=== PATIENT | male | born 1990 | race Caucasian/White ===

== ENCOUNTER 2021-10-27 17:39 | Emergency (ER) | payer OTHER ==
[2021-10-27 17:43] VITALS: PULSE 80; RESP 20; TEMP 98.7
[2021-10-27] MEDS ORDERED: FLUORESCEIN STRIPS 1 MG STRIP LEFT EYE ONE (19:00)
[2021-10-27] MEDS ORDERED: PROPARACAINE 0.5% OPHTH DROPS 15 ML BTL LEFT EYE STA (19:00)
[2021-10-27] MEDS ORDERED: DIPH,PERTUS(ACELL)TETVAC-LF 0.5 ML VIAL IM ONE (20:33)
[2021-10-27] MEDS ORDERED: TOBRAMYCIN 0.3% OPHTH OINT 3.5 GM TUBE LEFT EYE STA (20:33)
--- NOTE | 2021-10-27 20:35 | ED ---
General Adult HPI - General Chief complaint: Eye Problems Stated complaint: foreign body lt eye Time Seen by Provider: 10/27/21 18:59 Source: patient Mode of arrival: ambulatory Limitations: no limitations - History of Present Illness Initial comments: 31-year-old male patient presents to the emergency department today for evaluation of foreign body to the left eye. Patient states that he was at work when he fell something in his eye. States that he started to have more discomfort after he got home from work. Denies any drainage from the eye. Den ies any blurred or double vision. States he is able to see a speck near his cornea. He is unsure when his last tetanus was given. 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 Denies use of contact lenses. - Related Data Home Medications Medication Instructions Recorded Confirmed No Known Home Medications 10/27/21 10/27/21 Allergies Allergy/AdvReac Type Severity Reaction Status Date / Time No Known Allergies Allergy Verified 10/27/21 19:39 Review of Systems ROS Statement: Those systems with pertinent positive or pertinent negative responses have been documented in the HPI. ROS Other: All systems not noted in ROS Statement are negative. Past Medical History Past Medical History: Asthma History of Any Multi-Drug Resistant Organisms: None Reported Past Surgical History: No Surgical Hx Reported Past Psychological History: No Psychological Hx Reported Smoking Status: Never smoker Past Alcohol Use History: Occasional Past Drug Use History: Marijuana General Exam Limitations: no limitations General appearance: alert, in no apparent distress, other (This is a well- developed, well-nourished adult male in no acute distress.) Eye exam: Present: PERRL, EOMI, other (Fluorescein stain with Wood's lamp examination performed did reveal evidence for foreign body over the left cornea at 9:00. Negative Jessika sign.). Absent: normal appearance, scleral icterus, conjunctival injection, periorbital swelling Respiratory exam: Present: normal lung sounds bilaterally. Absent: respiratory distress, wheezes, rales, rhonchi, stridor Cardiovascular Exam: Present: regular rate, normal rhythm, normal heart sounds. Absent: systolic murmur, diastolic murmur, rubs, gallop, clicks Neurological exam: Present: alert, oriented X3, CN II-XII intact Psychiatric exam: Present: normal affect, normal mood Skin exam: Present: warm, dry, intact, normal color. Absent: rash Course Vital Signs 10/27/21 17:40 Temperature 98.7 F Pulse Rate 80 Respiratory 20 Rate O2 Sat by Pulse 99 Oximetry Procedures - Forgein Body Removal Eye Site: Left Location in eye(s): 9:00 Anesthetic Used: Proparacaine Eye Exam Technique: [place] Lamp, Fluorescein Foreign Body Suspected: Metal Forgein Body Removal Technique: Needle Remaining Debris: Yes Patient Tolerated: no complications Medical Decision Making - Medical Decision Making 31-year-old male patient presented for evaluation of foreign body to the left eye. Physical examination did reveal metal foreign body to the 9 o'clock position on the cornea. Did perform fluorescein stain with Wood's lamp examination negative Jessika sign. No other evidence for abrasion. Was able to remove the majority of the foreign body utilizing a needle. There is no remaining rust ring. He is given tobramycin ointment for discharge. Instructed to use this 4 times daily while awake. He is instructed to follow-up with ophthalmology in 24 hours if his symptoms aren't improved. Return parameters were discussed in detail. He verbalizes understanding and agrees with this plan. My attending is Dr. Huntley. Disposition Clinical Impression: Foreign body of left eye Disposition: HOME SELF-CARE Condition: Good Instructions (If sedation given, give patient instructions): Eye Foreign Body (ED) Additional Instructions: Use antibiotic ointments, do 1 cm ribbon to the left eye 4 times daily while awake. Follow-up with forming acid dumper in 24 hours if his symptoms are not improved. Return to the emergency department immediately for any new, worsening, or concerning symptoms. Is patient prescribed a controlled substance at d/c from ED?: No Referrals: Dustin Cash MD [STAFF PHYSICIAN] - 1-2 days Time of Disposition: 20:35
== END 2021-10-27 21:21 | disposition home or self-care (01) ==
LOC: EC 17:39
DX: T15.02XA Foreign body in cornea, left eye, initial encounter (principal); J45.909 Unspecified asthma, uncomplicated; F12.90 Cannabis use, unspecified, uncomplicated; X58.XXXA Exposure to other specified factors, initial encounter; Y99.0 Civilian activity done for income or pay
CPT/HCPCS: 65222; 90471; 90715; 99283